=== PATIENT | female | born 1975 | race Caucasian/White ===

== ENCOUNTER 2023-04-23 07:51 | Outpatient (CLI) | payer MEDICARE, MEDICAID, SELFPAY ==
--- NOTE | ~2023-04-23 | MR_ITS ---
EXAMINATION: MR brain/brain stem wo/w con DATE: 04/23/2023 09:08 INDICATION: Left hemiparesis. Multiple sclerosis. TECHNIQUE: Magnetic resonance imaging (MRI) of the brain and brainstem was performed without and with 13 mL MultiHance intravenous contrast. COMPARISON: None. FINDINGS: There are a few small foci of increased T2-weighted signal intensity involving the deep and juxtacortical cerebral white matter. There is an area of increased T2-weighted signal intensity in t he periventricular left frontal lobe. No infratentorial lesions. No abnormal contrast enhancement. Th ere is no acute ischemic infarct or intracranial hemorrhage. The ventricles are normal in size. The o rbits are normal. There is mild mucosal thickening in the paranasal sinuses. The mastoid air cells ar e normal. IMPRESSION: 1. Mild nonspecific cerebral white matter disease, which may be chronic small vessel ischemic disease and/or multiple sclerosis. Reviewed, dictated and finalized at location A. IMPRESSION: 1. Mild nonspecific cerebral white matter disease, which may be chronic small v essel ischemic disease and/or multiple sclerosis.
== END 2023-04-23 07:52 | disposition home or self-care (01) ==
PROVIDERS: Visit Provider Internal Medicine
DX: R53.1 Weakness (principal); R93.0 Abnormal findings on diagnostic imaging of skull and head, not elsewhere classified
CPT/HCPCS: 70553; A9577